=== PATIENT | male | born 1960 | race Caucasian/White ===

== ENCOUNTER 2017-02-24 22:20 | Emergency (ER) | payer OTHER ==
[~2017-02-24] VITALS: Ht 170.2 cm; Wt 90.7 kg
[~2017-02-24 22:20] MED LIST: AMLO5TAB92 PO
[2017-02-24 22:30] VITALS: BP_SYST 147
--- NOTE | 2017-02-24 22:35 | NUR ---
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 2 cm superficial L middle finger laceration. Will continue to monitor. No distress noted.
--- NOTE | 2017-02-24 22:35 | NUR ---
Patient to ER bed 6 to gown for evaluation. Side rails up. Report given to Susan AMEZCUA.
--- NOTE | 2017-02-24 22:37 | NUR ---
ER Dr. Wiley at bedside examining patient.
[2017-02-24] MEDS ORDERED: DIPH-TET-PERTUS Vaccine 0.5 ML VIAL (ADACEL) IM ONE (22:45)
[2017-02-24 23:21] VITALS: BP_SYST 147
--- NOTE | 2017-02-24 23:21 | NUR ---
Patient given written and verbal discharge instructions and verbalizes understanding. ER MD discussed with patient the results and treatment provided. Given copies of tests performed in ER. Patient in stable condition. ID arm band removed.Patient educated on pain management and to follow up with PMD. Pain Scale 0/10. Opportunity for questions provided and answered.
== END 2017-02-24 23:21 | disposition home or self-care (01) ==
LOC: SED 22:20
DX: S61.213A Laceration without foreign body of left middle finger without damage to nail, initial encounter (principal); I10 Essential (primary) hypertension; W45.8XXA Other foreign body or object entering through skin, initial encounter; Y93.89 Activity, other specified; Y99.8 Other external cause status; Y92.89 Other specified places as the place of occurrence of the external cause
CPT/HCPCS: 90715; 99283

== ENCOUNTER 2018-09-30 12:39 | Emergency (ER) | payer OTHER ==
[~2018-09-30] VITALS: Ht 175.3 cm; Wt 90.7 kg
[2018-09-30] MEDS ORDERED: NACL 0.9% 1,000 ML IV ONE (13:01)
[2018-09-30 13:04] VITALS: BP_SYST 118
[2018-09-30] MEDS ORDERED: MORPHINE 4 MG/ML INJ. SYRINGE IVP ONE (13:15)
[2018-09-30] MEDS ORDERED: ONDANSETRON HCL 4 MG/2 ML VIAL IVP ONE (13:15)
[2018-09-30 13:26] LABS: BASOPHILS # (AUTO) 0.1 K/uL (0.0-0.2); BASOPHILS % (AUTO) 0.9 % (0.0-2.0); EOSINOPHILS # (AUTO) 0.1 K/uL (0.0-0.4); EOSINOPHILS % (AUTO) 1.4 % (0.0-4.0); HEMATOCRIT 48.9 % (36-54); HEMOGLOBIN 15.9 g/dL (14.0-18.0); LYMPHOCYTES # (AUTO) 2.1 K/uL (1.0-5.5); LYMPHOCYTES % (AUTO) 31.9 % (20.5-51.5); MEAN CORPUSCULAR HEMOGLOBIN 32 pg (27-31); MEAN CORPUSCULAR HGB CONC 33 % (32-36); MEAN CORPUSCULAR VOLUME 98 fL (79.0-98.0); MONOCYTES # (AUTO) 0.5 K/uL (0.0-1.0); MONOCYTES % (AUTO) 7.5 % (1.7-9.3); NEUTROPHILS # (AUTO) 3.9 K/uL (1.8-7.7); NEUTROPHILS % (AUTO) 58.3 % (40.0-70.0); PLATELET COUNT (AUTO) 356 K/uL (130-430); RED BLOOD CELL COUNT(AUTO) 4.97 MIL/uL (4.2-6.2); RED CELL DISTRIBUTION WIDTH 12.7 % (9.0-15.0); WHITE BLOOD COUNT (AUTO) 6.7 K/uL (4.8-10.8)
[2018-09-30 13:41] LABS: CALCIUM 9.2 mg/dL (8.4-11.0); CREATININE 0.97 mg/dL (0.55-1.30)
[2018-09-30 13:43] LABS: PROTHROMBIN TIME 10.1 SECS (9.5-12.5)
[2018-09-30 13:45] LABS: ALBUMIN 3.9 g/dL (3.4-4.8); TOTAL BILIRUBIN 0.4 mg/dL (0.0-1.0)
[2018-09-30] MEDS ORDERED: KETOROLAC TROMETHAMINE 60 MG/2 ML VIAL IM ONE (13:45)
[2018-09-30 14:48] VITALS: BP_SYST 124
== END 2018-09-30 14:48 | disposition home or self-care (01) ==
LOC: SED 12:39
DX: S70.01XA Contusion of right hip, initial encounter (principal); W10.9XXA Fall (on) (from) unspecified stairs and steps, initial encounter; Y93.89 Activity, other specified; Y92.89 Other specified places as the place of occurrence of the external cause; Y99.8 Other external cause status; I10 Essential (primary) hypertension
CPT/HCPCS: 36415; 71045; 73502; 80053; 82550; 83690; 84484; 85025; 85610; 85730; 93005; 96372; 99285; J1885; J7030; J2270; J2405